=== PATIENT | female | born 1985 | race African-American/Black ===

== ENCOUNTER 2017-12-28 14:27 | Outpatient (CLI) | payer OTHER | END 2017-12-28 14:28 | disposition home or self-care (01) | LOC: SC 14:27 | PROVIDERS: ATTEND Internal Medicine Pulmonary Disease | DX: G47.30 Sleep apnea, unspecified (principal); G47.10 Hypersomnia, unspecified; R06.83 Snoring; G47.8 Other sleep disorders | CPT/HCPCS: 99203; 99212 ==

== ENCOUNTER 2018-02-13 20:34 | Outpatient (CLI) | payer OTHER | END 2018-02-13 20:35 | disposition home or self-care (01) | LOC: SC 20:34 | PROVIDERS: ATTEND Internal Medicine Pulmonary Disease | DX: G47.30 Sleep apnea, unspecified (principal) | CPT/HCPCS: 95810 ==

== ENCOUNTER 2018-03-14 13:13 | Outpatient (CLI) | payer OTHER | END 2018-03-14 13:14 | disposition home or self-care (01) | LOC: SC 13:13 | PROVIDERS: ATTEND Internal Medicine Pulmonary Disease | DX: R06.83 Snoring (principal); G47.00 Insomnia, unspecified | CPT/HCPCS: 99212; 99213 ==

== ENCOUNTER 2019-02-06 09:59 | Outpatient (CLI) | payer OTHER | END 2019-02-06 10:00 | disposition EMS.NT | LOC: EMS 09:59 | PROVIDERS: ATTEND Surgery | DX: R07.9 Chest pain, unspecified (principal); R10.13 Epigastric pain ==

== ENCOUNTER 2019-02-06 10:54 | Emergency (ER) | payer OTHER ==
[2019-02-06] MEDS ORDERED: MORPHINE 2 MG/ML CARPUJECT IVP STA (12:49)
[2019-02-06] MEDS ORDERED: ASPIRIN CHEW 81 MG TABLET PO STA (12:49)
[2019-02-06] MEDS ORDERED: ASPIRIN CHEW 81 MG TABLET ONE (13:02)
[2019-02-06 13:15] VITALS: BP 115/68
[2019-02-06 13:21] LABS: BASOPHILS % (AUTO) 0.7 %; EOSINOPHILS # (AUTO) 0.5 10^3/uL (0.0-0.7); EOSINOPHILS % (AUTO) 8.4 %; HGB - HEMOGLOBIN 14.1 g/dL (12.0-16.0); LYMPHOCYTES # (AUTO) 2.8 10^3/uL (1.5-3.5); LYMPHOCYTES % (AUTO) 44.5 %; MEAN CORPUSCULAR HGB CONC 33.6 g/dL (32.0-36.0); MEAN CORPUSCULAR VOLUME 92.2 fL (81.0-99.0); MEAN PLATELET VOLUME 7.4 fL (7.9-10.8); MONOCYTES # (AUTO) 0.4 10^3/uL (0.0-1.0); MONOCYTES % (AUTO) 6.1 %; NEUTROPHILS # (AUTO) 2.5 10^3/uL (1.5-6.6); NEUTROPHILS % (AUTO) 40.3 %; PLT - PLATELET COUNT 220 10^3/uL (130-450); RED BLOOD COUNT 4.53 10^6/uL (4.20-5.40); RED CELL DISTRIBUTION WIDTH 12.9 % (12.0-15.0); WHITE BLOOD COUNT 6.2 x10^3/uL (4.8-10.8)
[2019-02-06 13:36] LABS: ALBUMIN 3.9 g/dL (3.2-5.5); ALBUMIN/GLOBULIN RATIO 1.3 (1.0-2.2); BILIRUBIN,TOTAL 0.9 mg/dL (0.2-1.0); CALCIUM 8.8 mg/dL (8.5-10.3); CREATININE 0.9 mg/dL (0.4-1.0)
--- NOTE | 2019-02-06 13:56 | XRAY Report ---
Reason: cp Procedure Date: 02/06/2019 Accession Number: [id number] Procedure: XR - Chest 2 View X-Ray CPT Code: 62516 FULL RESULT: EXAM: CHEST RADIOGRAPHY EXAM DATE: 02/06/2019 01:26 PM. CLINICAL HISTORY: Chest pain since last night. COMPARISON: None. TECHNIQUE: 2 views. FINDINGS: Lungs/Pleura: No focal opacities evident. No pleural effusion. No pneumothorax. Normal volumes. Mediastinum: Heart and mediastinal contours are unremarkable. Other: None. IMPRESSION: Normal 2-view chest radiography. RADIA
--- NOTE | 2019-02-06 14:21 | ED Physician Documentation ---
PD HPI CHEST PAIN - Stated complaint Stated Complaint: CP/ - Chief complaint Chief Complaint: Cardiac - Additional information Additional information: 33-year-old female presents the emergency department with complaints of retro- sternal chest pain which started yesterday evening and has been continuous in nature. The pain radiates into her back and to her left chest wall. Symptoms are not worsened with food, exertion, breathing or liquids. No recent leg swelling or unilateral leg pain. Symptoms are described as moderate. No triggering factors. No relieving factors. No other associated symptoms Review of Systems Constitutional: denies: Fever, Chills Eyes: denies: Discharge Ears: denies: Ear pain Nose: denies: Rhinorrhea / runny nose Throat: denies: Sore throat Cardiac: reports: Chest pain / pressure Respiratory: denies: Cough GI: denies: Abdominal Pain : denies: Dysuria Skin: denies: Rash Musculoskeletal: denies: Neck pain Neurologic: denies: Generalized weakness Immunocompromised: denies: Chemotherapy PD PAST MEDICAL HISTORY - Past Medical History Past Medical History: Yes Psych: Anxiety - Past Surgical History Past Surgical History: No - Allergies Allergies/Adverse Reactions: Allergies Allergy/AdvReac Type Severity Reaction Status Date / Time No Known Drug Allergies Allergy Verified 02/06/19 11:03 - Social History Does the pt smoke?: Yes Smoking Status: Former smoker Does the pt drink ETOH?: Yes Does the pt have substance abuse?: No - Immunizations Immunizations are current?: Yes - POLST Patient has POLST: No PD ED PE NORMAL - General General: Alert and oriented X 3, No acute distress - HEENT HEENT: Atraumatic, PERRL, EOMI, Ears normal - Neck Neck: Supple, no meningeal sign - Cardiac Cardiac: RRR, Strong equal pulses - Respiratory Respiratory: No respiratory distress, Clear bilaterally - Abdomen Abdomen: Soft, Non tender - Derm Derm: Normal color - Extremities Extremities: No deformity - Neuro Neuro: Alert and oriented X 3, Normal speech - Psych Psych: Normal mood Results - Vitals Vitals: Vital Signs - 24 hr 02/06/19 02/06/19 02/06/19 10:54 12:43 13:15 Temperature 36.5 C Heart Rate 66 68 68 Respiratory 16 14 18 Rate Blood Pressure 126/75 124/72 115/68 O2 Saturation 100 100 99 Oxygen O2 Source Room air - EKG (time done) No standard instances Rhythm: NSR [place]: Normal Intervals: Normal MI QRS: Normal Ischemia: Non specific changes - Labs Labs: Laboratory Tests 02/06/19 02/06/19 02/06/19 13:04 13:04 13:04 WBC 6.2 RBC 4.53 Hgb 14.1 Hct 41.8 MCV 92.2 MCH 31.0 MCHC 33.6 RDW 12.9 Plt Count 220 MPV 7.4 L Neut # (Auto) 2.5 Lymph # (Auto) 2.8 Darke # (Auto) 0.4 Eos # (Auto) 0.5 Baso # (Auto) 0.0 Absolute Nucleated RBC 0.00 Nucleated RBC % 0.0 D-Dimer 144.3 L Sodium 136 Potassium 3.5 Chloride 104 Carbon Dioxide 24 Anion Gap 8.0 BUN 13 Creatinine 0.9 Estimated GFR (MDRD) 89 Glucose 83 Calcium 8.8 Total Bilirubin 0.9 AST 17 ALT 15 Alkaline Phosphatase 62 Troponin I Total Protein 7.0 Albumin 3.9 Globulin 3.1 Albumin/Globulin Ratio 1.3 Lipase 38 02/06/19 02/06/19 13:04 14:57 WBC RBC Hgb Hct MCV MCH MCHC RDW Plt Count MPV Neut # (Auto) Lymph # (Auto) Darke # (Auto) Eos # (Auto) Baso # (Auto) Absolute Nucleated RBC Nucleated RBC % D-Dimer Sodium Potassium Chloride Carbon Dioxide Anion Gap BUN Creatinine Estimated GFR (MDRD) Glucose Calcium Total Bilirubin AST ALT Alkaline Phosphatase Troponin I < 0.04 < 0.04 Total Protein Albumin Globulin Albumin/Globulin Ratio Lipase - Rads (name of study) CXR Radiology: Final report received, See rad report PD MEDICAL DECISION MAKING - ED course ED course: The patient's workup does not show any significant abnormality that would require admission to the hospital. Per the patient's heart score she is low risk and appears appropriate for further workup as an outpatient. I discussed warning signs and recommended returning to the emergency department immediately for any worsening or any concerns Departure - Departure Disposition: 01 Home, Self Care Clinical Impression: Chest pain Qualifiers: Chest pain type: unspecified Qualified Code(s): R07.9 - Chest pain, unspecified Condition: Good Instructions: ED Chest Pain [facility] [place] Follow-Up: VLADIMIR Redmond [Provider Group] ([place] Please asked them to arrange for an outpatient stress test to further evaluate your symptoms) Comments: Please return to the emergency department for worsening symptoms or any concerns
== END 2019-02-06 16:00 | disposition home or self-care (01) ==
LOC: ED 10:54
DX: R07.9 Chest pain, unspecified (principal); Z87.891 Personal history of nicotine dependence
CPT/HCPCS: 36415; 71046; 80053; 83690; 84484; 85025; 85379; 93005; 96374; 99283; A9270